=== PATIENT | male | born 1970 | race African-American/Black ===

== ENCOUNTER 2017-12-21 20:58 | Inpatient (IN) | payer OTHER ==
[2017-12-21 21:44] VITALS: BMI 26.3
[2017-12-21] MEDS ORDERED: MELATONIN 5 MG TABLETS PO PRN (22:00)
--- NOTE | 2017-12-21 22:40 | HP ---
Admission [facility] Chief Complaint: Seeking admission to detox Allergies/Adverse Reactions: Allergies Allergy/AdvReac Type Severity Reaction Status Date / Time No Known Allergies Allergy Verified 12/21/17 22:35 History of Present Illness: 47 years old male is seeking admission to Rehab. Patient has been in previous Rehab. at [facility], [facility] in 2015. Patient reports history of depression, bipolar and multiple suicide attempts, last in 2011. Patient was transferred from [facility] post detox from heroin. Exam Limitations: No Limitations - Ebola screening Have you traveled outside of the country in the last 21 days: No (N) Have you had contact with anyone from an Ebola affected area: No Have you been sick,other than usual withdrawal symptoms: No Do you have a fever: No - Review of Systems Constitutional: No Symptoms Reported EENT: reports: No Symptoms Reported Respiratory: reports: No Symptoms reported Cardiac: reports: No Symptoms Reported GI: reports: No Symptoms Reported : reports: No Symptoms Reported Musculoskeletal: reports: No Symptoms Reported Integumentary: reports: No Symptoms Reported Neuro: reports: No Symptoms reported Endocrine: reports: No Symptoms Reported Hematology: reports: No Symptoms Reported Psychiatric: reports: No Sypmtoms Reported, Mood/Affect Appropiate Other Systems: Reviewed and Negative Patient History - Patient Medical History Hx Anemia: No Hx Asthma: No Hx Chronic Obstructive Pulmonary Disease (COPD): No Hx Cancer: No Hx Cardiac Disorders: No Hx Congestive Heart Failure: No Hx Hypertension: No Hx Hypercholesterolemia: No Hx Pacemaker: No HX Cerebrovascular Accident: No Hx Seizures: No Hx Dementia: No Hx Diabetes: No Hx Gastrointestinal Disorders: No Hx Liver Disease: No Hx Genitourinary Disorders: No Hx Sexually Transmitted Disorders: No Hx Renal Disease (ESRD): No Hx Thyroid Disease: No Hx Human Immunodeficiency Virus (HIV): No (Negative 2016) Hx Hepatitis C: No Hx Depression: Yes (Not on medication) Hx Suicide Attempt: Yes (Multiple attempts, last in 2015. Denies suicidal ideation at this time) Hx Bipolar Disorder: Yes (Not on medication) Hx Schizophrenia: No Other Medical History: Anxiety - Not on medication - Patient Surgical History Past Surgical History: No - PPD History Previous Implant?: Yes Documented Results: Negative w/o proof Implanted On Prior [facility] Admission?: No PPD to be Administered?: Yes - Reproductive History Patient is a Female of Child Bearing Age (11 -55 yrs old): No (MALE) - Smoking Cessation Smoking history: Current every day smoker Have you smoked in the past 12 months: Yes Aproximately how many cigarettes per day: 5 Hx Chewing Tobacco Use: No Initiated information on smoking cessation: Yes 'Breaking Loose' booklet given: 12/21/17 - Substance & Tx. History Hx Alcohol Use: No Hx Substance Use: Yes Substance Use Type: Heroin Hx Substance Use Treatment: Yes ([facility]) Family Disease History - Family Disease History Family History: Denies Admission Physical Exam [facility] - Vital Signs Vital Signs: Vital Signs - 24 hr 12/21/17 21:42 Temperature 97.0 F L Pulse Rate 60 Respiratory 18 Rate Blood Pressure 148/85 - Physical General Appearance: Yes: Within Normal Limits HEENTM: Yes: Within Normal Limits, EOMI, Normal ENT Inspection, Normal Voice, VIKY Respiratory: Yes: Normal Breath Sounds, No Respiratory Distress Neck: Yes: Supple Breast: Yes: Breast Exam Deferred Cardiology: Yes: Regular Rhythm, Regular Rate Abdominal: Yes: Normal Bowel Sounds, Soft Genitourinary: Yes: Within Normal Limits Back: Yes: Normal Inspection Musculoskeletal: Yes: Within Normal Limits Extremities: Yes: Within Normal Limits, Normal Capillary Refill Neurological: Yes: senior quality methods specialist II-XII NML intact, Alert, Normal Mood/Affect Integumentary: Yes: Warm Lymphatic: Yes: Within Normal Limits - Diagnostic (1) Opioid dependence, uncomplicated Current Visit: Yes Status: Acute (2) Depression Current Visit: Yes Status: Acute Qualifiers: Depression Type: unspecified Qualified Code(s): F32.9 - Major depressive disorder, single episode, unspecified Cleared for Admission [facility] - Detox or Rehab [facility] Level of Care: Observation Bed Claeared for Rehab Admission: Yes [facility] Breath Alcohol Content Breath Alcohol Content: 0 Urine Drug Screen - Results Drug Screen Negative: No Urine Drug Screen Results: MTD-Methadone Inpatient Rehab Admission - Initial Determination Are CD services needed?: Yes Free of communicable disease: Yes Not in need of hospitalization: Yes - Rehab Admission Criteria Previous failed treatment: Yes Poor recovery environment: Yes Comorbidities: Yes Lacks judgement: No Patient is meeting Inpatient Rehab admission criteria:: Yes
[2017-12-21] MEDS ORDERED: NICOTINE POLACRILEX 2 MG GUM BUC PRN (23:01)
[2017-12-21] MEDS ORDERED: ACETAMINOPHEN 325 MG TABLET (FP) PO PRN (23:01)
[2017-12-21] MEDS ORDERED: guaiFENesin/D-METHORPHAN HB 10 ML UNIT-DOSE CUPS PO PRN (23:01)
[2017-12-21] MEDS ORDERED: LOPERAMIDE HCL 2 MG CAPSULE PO PRN (23:01)
[2017-12-21] MEDS ORDERED: MAGNESIUM HYDROX 2400MG/30ML ORAL SUSPENSION 30 ML CUP PO PRN (23:01)
[2017-12-21] MEDS ORDERED: P-EPHED 60MG/TRIPROLIDI 2.5MG TABLET PO PRN (23:01)
[2017-12-21] MEDS ORDERED: MAG HYDROX/AL HYDROX/SIMETH 30 ML UNIT-DOSE CUP PO PRN (23:01)
[2017-12-21] MEDS ORDERED: MAGNESIUM CITRATE 300 ML BOTTLE PO PRN (23:01)
[2017-12-21] MEDS ORDERED: MENTHOL/PHENOL 1 EACH UD MM PRN (23:01)
[2017-12-22] MEDS ORDERED: TUBERCULIN PPD 5 TU/0.1ML VIAL ID ONE
[2017-12-22 10:00] LABS: HEMATOCRIT 39.9 % (35.4-49); MCH 29.7 pg (25.7-33.7); MCHC 32.5 g/dl (32.0-35.9); MEAN CELL VOLUME 91.3 fl (80-96); MEAN PLT VOLUME 8.7 fl (7.5-11.1); PLATELET COUNT 259 K/MM3 (134-434); RBC 4.37 M/mm3 (4.00-5.60); RDW 14.1 % (11.9-15.9); WHITE BLOOD COUNT 4.4 K/mm3 (4.0-10.0)
[2017-12-22 10:16] LABS: ALBUMIN 3.3 g/dl (3.4-5.0); ALK PHOS 56 U/L (45-117); ANION GAP 5 MMOL/L (8-16); BILIRUBIN,TOTAL 0.6 mg/dL (0.2-1); BLOOD UREA NITROGEN 10 mg/dL (7-18); CALCIUM 9.9 mg/dL (8.5-10.1); CHLORIDE 108 mmol/L (98-107); CO2 28 mmol/L (21-32); GLUCOSE,RANDOM 85 mg/dL (74-106); SGOT/AST 20 U/L (15-37); SGPT/ALT 27 U/L (13-61); SODIUM 142 mmol/L (136-145); TOT PROT 6.2 g/dl (6.4-8.2)
[2017-12-22] MEDS: NICOTINE 14 MG/24 HOURS TOPICAL PATCH TD SCH (10:29)
[2017-12-22] MEDS: PRENATAL VITAMINS W/ FOLIC ACID TABLET (FP) PO SCH (10:29)
--- NOTE | 2017-12-22 10:34 | HP ---
Psychiatrist Admission - Data Date of interview: 12/22/17 Admission source: [facility] detox Identifying data: This is the first [facility] admission for this 47 years old single Black male, father of 2 children, unemployed with no source of income, homeless Medical History: Unremarkable. Patient is on Suboxone 8 mg/ 2 mg SL daily. Smokes 5 cigarettes daily Psychiatric History: Reports that his first psychiatric contact was in 2008 when he was admitted to [facility] in [place]. He was diagnosed with Bipolar II Disorder and started on Xanax and Depakote. Reports 5-4 subsequent admissions to various facilities in [place]. He is known to [facility] and [facility]. Most recent one was to [facility] in 2011. Reports that he stopped taking psychotropic medications approximately 2 years ago because he did not believe he needed to continue taking them. At that time he was on Risperdal and Lexapro. Told marketing writer that up to 2 months ago, he was seeing a mental health professional in [place], [place] for psychotherapy. Reports history of multiple suicidal attempts via various means: overdose, hanging, tried to shot self and suicide by mass spectroscopist. Recent one was in 2008 by hanging. Reports feeling fine but his irritability was obvious. Reports sleeping poorly Physical/Sexual Abuse/Trauma History: Denies history of emotional physical or sexual abuse as well as DV relationship. No service Additional Comment: Reports history of multiple previous arrests include many felony convictions. Denies being on parole/probation at present Vital Signs: Vital Signs - 24 hr 12/21/17 12/21/17 12/22/17 21:42 23:52 00:30 Temperature 97.0 F L 98.5 F Pulse Rate 60 47 L Respiratory 18 18 20 Rate Blood Pressure 148/85 141/89 12/22/17 12/22/17 03:30 06:26 Temperature 97.9 F Pulse Rate 58 L Respiratory 18 18 Rate Blood Pressure 145/92 Allergies/Adverse Reactions: Allergies Allergy/AdvReac Type Severity Reaction Status Date / Time No Known Allergies Allergy Verified 12/21/17 22:35 Date of last physical exam: 12/21/17 Concur with the findings of this exam: Yes - Substance Abuse/Tx History Hx Alcohol Use: No Hx Substance Use: Yes Substance Use Type: Heroin (Started using heroin at age 14, consumes 10-12 bags daily. Last used on 12/15/17) Hx Substance Use Treatment: Yes (2 previous inpt detox & one rehab([facility] 2016) admissions) Mental Status Exam - Mental Status Exam Alert and Oriented to: Time, Place, Person Cognitive Function: Fair Patient Appearance: Well Groomed Mood: Irritable Affect: Appropriate Patient Behavior: Cooperative Voice Loudness: Normal Thought Process: Intact Thought Disorder: Not Present Hallucinations: Denies Suicidal Ideation: Denies Homicidal Ideation: Denies Insight/Judgement: Fair Sleep: Poorly Appetite: Poor Muscle strength/Tone: Normal Gait/Station: Normal Psychiatric Findings - Problem List ([place] 1, 2,3) (1) Opioid dependence Current Visit: Yes Status: Acute (2) Opioid dependence on agonist therapy Current Visit: Yes Status: Chronic (3) Nicotine dependence Current Visit: Yes Status: Chronic (4) Bipolar II disorder Current Visit: Yes Status: Chronic (5) Substance induced mood disorder Current Visit: Yes Status: Acute (6) Substance-induced sleep disorder Current Visit: Yes Status: Acute - Initial Treatment Plan Initial Treatment Plan: Monitor progress
[2017-12-22] MEDS: IBUPROFEN 400 MG TABLET (FP) PO PRN (17:31)
[2017-12-22 17:32] LABS: URINE APPEARANCE CLEAR; URINE BILIRUBIN NEGATIVE (<2.0 mg/dL); URINE COLOR STRAW; URINE GLUCOSE (UA) NEGATIVE (NEGATIVE); URINE KETONE NEGATIVE (NEGATIVE); URINE LEUK ESTERASE NEGATIVE (NEGATIVE); URINE NITRITE NEGATIVE (NEGATIVE); URINE PROTEIN NEGATIVE (NEGATIVE); URINE UROBILINOGEN NEGATIVE mg/dL (0.2-1.0)
[2017-12-22] MEDS ORDERED: THIAMINE HCL 100 MG TABLET (FP) PO SCH (22:00)
--- NOTE | 2017-12-22 22:18 | EKG ---
Test Reason : Blood Pressure : / mmHG Vent. Rate : 059 BPM Atrial Rate : 059 BPM P-R Int : 172 ms QRS Dur : 098 ms QT Int : 424 ms P-R-T Axes : 067 087 072 degrees QTc Int : 419 ms SINUS BRADYCARDIA NONSPECIFIC T WAVE ABNORMALITY ABNORMAL ECG NO PREVIOUS ECGS AVAILABLE Confirmed by NORMA GARCIA MD ([id number]) on 12/22/2017 10:18:15 PM Referred By: Confirmed By:NORMA GARCIA MD
[2017-12-23 07:06] VITALS: BP 139/77; PULSE 55; TEMP 98.8
[2017-12-23] MEDS: IBUPROFEN 400 MG TABLET (FP) PO PRN (07:41)
[2017-12-23] MEDS: NICOTINE 14 MG/24 HOURS TOPICAL PATCH TD SCH (10:39)
[2017-12-23] MEDS: PRENATAL VITAMINS W/ FOLIC ACID TABLET (FP) PO SCH (10:39)
--- NOTE | 2017-12-23 16:28 | PN ---
[facility] Progress Note Note: NURSE CALLED TO REPORT PT SIGNED OUT AMA TODAY.
== END 2017-12-23 12:50 | disposition left against medical advice (07) | DRG 770 ==
LOC: YASAS 20:58 → Y5N 23:20
PROVIDERS: ADMIT Psychiatry & Neurology Psychiatry; ATTEND Psychiatry & Neurology Psychiatry
PROC: HZ42ZZZ Group Counseling for Substance Abuse Treatment, Cognitive-Behavioral (ICD-10-PCS; principal; 2017-12-21)
DX: F11.20 Opioid dependence, uncomplicated (principal); F17.210 Nicotine dependence, cigarettes, uncomplicated; F31.81 Bipolar II disorder; F19.24 Other psychoactive substance dependence with psychoactive substance-induced mood disorder; F19.282 Other psychoactive substance dependence with psychoactive substance-induced sleep disorder; Z91.5 Personal history of self-harm
CPT/HCPCS: 36415; 80053; 81003; 85027; 86593; 86803; 93005; 93010